=== PATIENT | female | born 2000 | race Caucasian/White ===

== ENCOUNTER → 2023-04-09 13:02 | Outpatient (BNVA) | payer OTHER, SELFPAY | PROVIDERS: PCP Pediatrics; Visit Provider Surgery ==

== ENCOUNTER 2023-04-23 11:02 | Outpatient (AMB) | payer OTHER, SELFPAY ==
--- NOTE | 2023-04-23 11:03 | A.OFFVIS_ITS ---
Intake Vital Signs 04/23/23 11:09 Height 5 ft 1 in Weight 131 lb 0.014 oz BMI 24.7 BP 105/65 Blood Pressure Location Rt brachial Position Sitting Pulse 71 Intake Visit Reasons: Hemorrhoids, Intake Note: This patient presents for an assessment for hemorrhoids. Patient c/o; reports burning sensation when constipated, straining with bowel movements, 2 months . Instrument/Control Technician Required: No Tactical/Mobile Watch Officer: Tactical/Mobile Watch Officer Present (Roberta-NINI) Accompanied by: Other Relationship Allergies No Known Allergies Allergy (Unverified 04/23/23 11:10) Medication List - Last Reconciled 04/23/23 by Julius Junior MD prenat.vits,thea,yjp-rvmx-nbvta tabs PO DAILY Patient : Yes HPI Hemorrhoids, HPI Details 22-year-old female referred for hemorrho id issues. She actually says she has no she has had hemorrhoids for about 2 years now and she would have some occasional and pain with her hemorrhoids. She would notice small amounts of blood once in a while on wiping. She is 14 weeks , and she says that since she has been , she had noticed some worsening of her symptoms. These are usually swelling and pain along with small amounts of blood on wiping. She admits to being chronically constipated. Today, she feels well and denies any acute pain. [facility] Medical History (Updated 04/23/23 @ 11:47 by Julius Junior MD) External hemorrhoids with complication Surgical History History of tonsillectomy Social History Alcohol intake: never Patient Tobacco Use Status: Never used Tobacco Patient : Yes Review of Systems Const Denies chills and Denies fever(s) Card Denies chest pain, Denies dyspnea and Denies dyspnea on exertion Resp Denies cough, Denies dyspnea and Denies dyspnea on exertion GI Reports hematochezia, Denies change in bowel habits and Reports constipation Denies hematuria Musc Denies back pain and Denies limited range of motion Neuro Denies focal weakness and Denies convulsions Psych Denies depression and Denies mood swings Physical Exam Vital Signs: Last Vital Signs Pulse 71 04/23/23 11:09 BP 105/65 04/23/23 11:09 BMI result Body Mass Index 24.7 Const General: comfortable and no acute distress Orientation/consciousness: patient oriented x3 Neck Neck: Yes no lymphadenopathy Resp Auscultation: clear to auscultation bilaterally Cardio Rhythm: regular rhythm GI Other: Rectal exam shows moderate size external hemorrhoids on the right anterior area Palpation (GI): Soft to palpation, nontender and no guarding Neuro General: patient oriented x3 Office Procedures Anoscopy She was in caridad-knife position. The anoscope was gently inserted. A full examination of the anal canal was done. Again this hemorrhoidal column on the right anterior was seen and this was mostly external. There was no bleeding, thrombosis or acute swelling. There was no induration on digital exam [id number] Assessment & Plan Assessment & Plan (1) External hemorrhoids with complication: Code(s): K64.4 - Residual hemorrhoidal skin tags Plan: She has this external hemorrhoid with episodes of swelling and pain. I told her that we would hold off on any surgical intervention were she is . I will prescribe her Colace as she has known history of constipation. She seems to be aware of the plan well. She is welcome to come back to me if she has acute symptoms in the meantime. Coding Level of Care Code New Pt Level 3 (07693) Diagnoses External hemorrhoids with complication K64.4 CPT Codes Details - CPT: 27262-Grwdtayf ([id number])
[2023-04-23 11:09] VITALS: BP 105/65; PULSE 71; BMI 24.7
== END 2023-04-23 11:45 | disposition home or self-care (01) ==
PROVIDERS: PCP Pediatrics; Visit Provider Surgery
DX: K64.4 Residual hemorrhoidal skin tags (principal)
CPT/HCPCS: 46600; 99203

== ENCOUNTER → 2023-04-23 11:02 | Outpatient (BNVA) | payer OTHER, SELFPAY | PROVIDERS: PCP Pediatrics; Visit Provider Surgery | DX: O22.41 Hemorrhoids in pregnancy, first trimester (principal); Z3A.14 14 weeks gestation of pregnancy | CPT/HCPCS: 46600 ==

== ENCOUNTER 2023-12-24 15:28 | Outpatient (AMB) | payer OTHER, SELFPAY ==
--- NOTE | 2023-12-24 15:38 | MHC.OFFVIS ---
Vital Signs 12/24/23 15:45 Height 5 ft 1 in Weight 154 lb BMI 29.1 BP 118/66 Blood Pressure Location Rt brachial Position Sitting Pulse 77 Intake Visit Reasons: hemorrhoids Intake Note: This patient presents for a follow-up assessment for hemorrhoids. Patient c/o; reports she gave October and she noticed her hemorrhoids are more symptomatic, reports painful bowel movements, reports occasional rectal bleeding. Extension Course Counselor Required: No Executive Wellness Programs Director: Executive Wellness Programs Director Present (Roberta-NINI) Accompanied by: Self / Same As Patient Allergies No Known Allergies Allergy (Unverified 12/24/23 15:52) Medication List - Last Reconciled 12/24/23 by Julius Junior MD docusate sodium (Colace) 100 mg PO BID prenat.vits,thea,ydw-opcg-odibj tabs PO DAILY HPI HPI hemorrhoids: Details: 23-year-old female referred for hemorrhoid issues. I had actually met her last year because of problematic hemorrhoids with pain, swelling and discomfort. She was at that time so she had deferred hemorrhoidectomy She says she continues to have problems with pain, swelling and discomfort with her hemorrhoids and she wants to proceed with hemorrhoidectomy. She says that her hemorrhoids are ?out? all the time especially on the right side She now has a 2-month-old baby and does state that she breast feeds. [facility] Medical History External hemorrhoids with complication Surgical History History of tonsillectomy Social History Alcohol intake: never Patient Tobacco Use Status: Never used Tobacco Review of Systems Const Denies chills and Denies fever(s) Card Denies chest pain, Denies dyspnea and Denies dyspnea on exertion Resp Denies cough, Denies dyspnea and Denies dyspnea on exertion GI Denies hematochezia and Denies change in bowel habits Denies hematuria Musc Denies back pain and Denies limited range of motion Neuro Denies focal weakness and Denies convulsions Psych Denies depression and Denies mood swings Physical Exam Vital Signs: Last Vital Signs Pulse 77 12/24/23 15:45 BP 118/66 06/03/24 15:45 BMI result Body Mass Index 29.1 Const General: comfortable and no acute distress Orientation/consciousness: patient oriented x3 Neck Neck: Yes no lymphadenopathy Resp Auscultation: clear to auscultation bilaterally Cardio Rhythm: regular rhythm GI Other: Large external hemorrhoid on the right side, small external hemorrhoid on the left, anoscopy deferred because of pain Palpation (GI): Soft to palpation, nontender and no guarding Neuro General: patient oriented x3 Assessment & Plan Assessment & Plan (1) External hemorrhoids with complication: Code(s): K64.4 - Residual hemorrhoidal skin tags Category: Medical Plan: She continues to have pain and discomfort with her hemorrhoids. She wants to proceed with hemorrhoidectomy. Again I had a long discussion with her about the technique of this procedure. I explained the risks including but not limited to bleeding, infections, postop pain, as well as the benefits and alternatives. I reviewed with her what to expect postoperatively. She says she understands and wants to proceed. Coding Level of Care Code Est Pt Level 3 (19423) Diagnoses External hemorrhoids with complication K64.4
[2023-12-24 15:45] VITALS: BP 118/66; PULSE 77; BMI 29.1
== END 2023-12-24 16:15 | disposition home or self-care (01) ==
PROVIDERS: PCP Pediatrics; Visit Provider Surgery
DX: K64.4 Residual hemorrhoidal skin tags (principal)
CPT/HCPCS: 99213

== ENCOUNTER → 2023-12-24 15:28 | Outpatient (BNVA) | payer OTHER, SELFPAY | PROVIDERS: PCP Pediatrics; Visit Provider Surgery | DX: K64.4 Residual hemorrhoidal skin tags (principal) | CPT/HCPCS: 99212 ==

== ENCOUNTER 2024-02-01 11:50 | Day surgery (SDC) | payer OTHER, SELFPAY ==
[2024-01-30 10:28] VITALS: BMI 29.1
--- NOTE | 2024-01-31 10:38 | HO.ANESPROP2 ---
Documented by User: Miriam Pollock NP 01/31/24 10:39 HPI - Anesthesia Eval Consult details Narrative: 23yo F for ?EUA,Hemorrhoidectomy post- 10/2023 [facility] Active Problems Active Problems: All Active Problems External hemorrhoids with complication (Acute) (Acute) Past Medical History Medical History External hemorrhoids with complication Surgical History Surgical History History of tonsillectomy Social History Social History Alcohol intake: never Patient Tobacco Use Status: Never used Tobacco Use of substances other than those prescribed or required for medical reasons: No Are you DNR?: No Advance Directives: No Advance Directives Information Provided: Yes Meds Allergies Allergy/AdvReac Type Severity Reaction Status Date / Time No Known Allergies Allergy Verified 02/01/24 11:59 Home Medications ?Medication ?Instructions ?Recorded ?Confirmed ?Last Taken ?Type prenat.vits,thea,aub-vtbf-bfmcy 1 tab PO DAILY 04/09/23 02/01/24 Unknown History Exam Height,Weight and Vital Signs: Height 5 ft 1 in Weight 69.853 kg Assessment and Plan Assessment Anesthesia Assessment: Chart Reviewed Documented by User: Adan Flores MD 02/01/24 12:57 [facility] Past Medical History Medical History External hemorrhoids with complication Family History Family history of problems with anesthesia: No Surgical History Surgical History History of tonsillectomy History of Problems with Anesthesia: No Social History Social History Alcohol intake: never Patient Tobacco Use Status: Never used Tobacco Use of substances other than those prescribed or required for medical reasons: No Are you DNR?: No Advance Directives: No Advance Directives Information Provided: Yes Meds Allergies Allergy/AdvReac Type Severity Reaction Status Date / Time No Known Allergies Allergy Verified 02/01/24 11:59 Home Medications ?Medication ?Instructions ?Recorded ?Confirmed ?Last Taken ?Type prenat.vits,thea,qzj-qdjn-nspdq 1 tab PO DAILY 04/09/23 02/01/24 Unknown History Exam Airway Mallampati Class: II TM Dist: >3cm Neck ROM: Full Assessment and Plan Assessment Anesthesia Assessment: Anesthesia Plan Discussed Final Anesthetic Review Family History of Problems with Anesthesia: No History of Problems with Anesthesia: No NPO: Yes ASA Class: II Final Preanesthetic Review: No Changes in Pt Med Stat, Meds/Allgs Chart Reviewed, Consent Obtained/Reviewed and Anes Risks/Benef Reviewed Patient Risk: Low Procedure Risk: Low Anesthetic Plan Anesthetic Plan: GA Disposition: Standard PACU
[2024-02-01] VITALS (7 sets, daily range): BP systolic 102–127; BP diastolic 54–78; PULSE 76–103; RESP 14–16; TEMP 36.7–37.6; O2SAT 98–100; BMI 30.3
[2024-02-01] MEDS: Lactated Ringers 1,000 ML 100 ML IVCONT (12:19)
[2024-02-01 12:23] LABS: UPreg QC Valid YES; Urine Pregnancy NEGATIVE (NEGATIVE)
--- NOTE | 2024-02-01 12:56 | MHC.SHP ---
Pre-Procedural Eval Section A - 24 Hr Update-Section A only Date of Service: 02/01/24 Section B - Complete if H&P > 30 days Chief Complaint: Residual hemorrhoidal skin tags Details of Present Illness: Painful internal external hemorrhoids Relevant Family History (Specify if Yes): No Relevant Social History: None Medical History: No relevant PMH History of Previous Operations: No relevant previous surgery Allergies: Allergies Allergy/AdvReac Type Severity Reaction Status Date / Time No Known Allergies Allergy Verified 02/01/24 11:59 Review of Systems Sugical H&P ROS: Negative: Constitution, Cardiovascular, Respiratory, Neurological, Psychiatric, Hem-Onc, Allergic/Immunologic, Gastrointestinal, Genitourinary, Musculoskeletal, Integumentary, Endocrine and Eyes/Ears/Nose/Throat Exam Surgical H&P Exam: Normal: HEENT, Normal: Heart, Normal: Lungs, Normal: Extremities, Normal: Abdomen, Normal: Skin and Normal: Neurological Exam Comment: Mixed hemorrhoids Plan Diagnosis/Plan: Unchanged I have reviewed the history and physical and performed a pertinent physical examination on my patient. No changes have occurred unless specified. Time Spent With Patient Time: Total time managing care of this patient today ____ minutes.
--- NOTE | 2024-02-01 14:10 | P.OP_ITS ---
Operative Note Operative Note Date of Service: 02/01/24 Narrative: Preop diagnosis: Internal and external hemorrhoids with pain Postop diagnosis: The same Procedure: Exam under anesthesia hemorrhoidectomy x2 columns Surgeon: Julius Junior MD Stapling Machine Operator: VIOLA Negro student The patient is a 23 year old female was had chronic complaints of pain and discomfort with her hemorrhoids and wanted to proceed with hemorrhoidectomy. She understood the technique of the planned procedure as well as the risks, benefits, and alternatives. She was brought to the operating room and placed in prone caridad-knife position under general anesthesia via endotracheal tube. The buttocks were retracted with wide tape laterally. The perianal area was prepped and draped usual sterile fashion. A surgical time-out was done. The patient received Cefotan 2 g IV preoperatively.. I infiltrated the perianal area with lidocaine 1%. Examination of the anal orifice showed a large hemorrhoids on both the left and the right side. I inserted the Nichole Aranda retractor. I examined the anal canal circumferentially. These hemorrhoidal columns were noted to be a mix of internal external. There were multiple hemorrhoids so I decided to choose the 2 largest wants for hemorrhoidectomy I applied a Aguilar grasper on the largest hemorrhoidal column on the left side to retract this out in the field. I made a lxovlf-la-xaofh stitch at its pedicle chromic 3-0. I made an incision around this hemorrhoidal column all the way to the perianal skin with a blade 15. I excised this hemorrhoidal column above the plane of the sphincters along this incision with scissors. I closed this incision with a running chromic 3-0 stitch. I had to place additional multiple yupnrj-ja-zqlzn hemostatic chromic 3-0 sutures in view of the bleeding from the large hemorrhoid. I proceeded to repeat the same procedure on the largest hemorrhoidal column on the right side. Again this was retracted the abuse with retractor and vzgtox-dp-yfypz stitch was applied at the pedicle. I made an incision around t his hemorrhoidal column to the perianal skin with a blade 15. I excised this above the plane of the sphincters using scissors. I closed this incision with a running chromic 3-0 stitch with additional hemostatic sutures placed for oozing areas Once hemostasis was confirmed, I proceeded to then infiltrated the perianal area with Marcaine 0.5% for postop analgesia. A rolled Gelfoam was applied. The procedure was then completed The patient tolerated the procedure well. There were no immediate complications. Initial and final counts of sponges and instruments were correct. Estimated blood loss about 40 cc The patient was extubated without difficulty and transferred to the recovery room with stable vital signs
== END 2024-02-01 16:00 | disposition home or self-care (01) ==
PROVIDERS: Nurse Practitioner; Visit Provider Surgery
PROC: (CPT 46260; principal; 2024-02-01 13:20)
DX: K64.8 Other hemorrhoids (principal); K64.4 Residual hemorrhoidal skin tags; K62.5 Hemorrhage of anus and rectum; Z79.899 Other long term (current) drug therapy
CPT/HCPCS: 46260; 81025; 88304; J1100; J1885; J2250; J2405; J2704; J2795; J3010

== ENCOUNTER → 2024-02-01 11:50 | Outpatient (BNV) | payer OTHER, SELFPAY | PROVIDERS: Visit Provider Surgery | DX: K64.8 Other hemorrhoids (principal) | CPT/HCPCS: 46260 ==

== ENCOUNTER 2024-02-21 14:25 | Outpatient (AMB) | payer OTHER, SELFPAY ==
--- NOTE | 2024-02-21 14:33 | MHC.OFFVIS ---
Intake Visit Reasons: s.p eua hemrrhoidectomy Intake Note: This patient presents for a post-op assessment status post EUA, hemorrhoidectomy. Patient c/o; reports no complaints. Surgery date: 02/01/2024 Set Up Inspector Required: No Accompanied by: Other Relationship Allergies No Known Allergies Allergy (Verified 02/21/24 14:38) HPI HPI s.p eua hemrrhoidectomy: Details: She underwent hemorrhoidectomy x2 columns last 02/01/2024. She tolerated the procedure well. She currently seems to be doing well and denies significant pain. [facility] Medical History External hemorrhoids with complication Surgical History History of hemorrhoidectomy (~02/01/24) History of tonsillectomy Social History Alcohol intake: never Patient Tobacco Use Status: Never used Tobacco Review of Systems Const Denies chills and Denies fever(s) Physical Exam Const General: comfortable and no acute distress Resp Effort & Inspection: normal respiratory effort GI Other: Rectal exam - hemorrhoidectomy sites are well healing, no signs of infection, some residual edema noted Assessment & Plan Assessment & Plan (1) External hemorrhoids with complication: Code(s): K64.4 - Residual hemorrhoidal skin tags Category: Medical Plan: Status post hemorrhoidectomy. Her hemorrhoidectomy sites are healing well. I advised her to avoid straining and constipation. If she is to continue doing hot Sitz baths She can follow up with me on a p.r.n. basis Her path report shows hemorrhoid tissue with thrombosis. Coding Level of Care Code Global (94601) Diagnoses External hemorrhoids with complication K64.4
== END 2024-02-21 14:55 | disposition home or self-care (01) ==
PROVIDERS: Visit Provider Surgery
DX: K64.4 Residual hemorrhoidal skin tags (principal)
CPT/HCPCS: 99024

== ENCOUNTER → 2024-02-21 14:25 | Outpatient (BNVA) | payer OTHER, SELFPAY | PROVIDERS: Visit Provider Surgery | DX: K64.4 Residual hemorrhoidal skin tags (principal) | CPT/HCPCS: 99212 ==